=== PATIENT | female | born 1980 | race African-American/Black ===

== ENCOUNTER 2016-11-08 10:39 | Emergency (ER) | payer MEDICAID ==
[~2016-11-08] VITALS: Ht 167.6 cm; Wt 81.6 kg
[2016-11-08 12:01] LABS: Basophils # (auto) 0 uL; Basophils % (auto) 0.4 % (0.0-2.0); CONDITION Y; Eosinophils # (auto) 0 uL; Eosinophils % (auto) 0.6 % (0.0-7.0); Hematocrit 34.1 % (36.0-46.0); Hemoglobin 11.5 g/dL (12.2-16.2); Lymphocytes # (auto) 2.5 uL; Lymphocytes % (auto) 38.7 % (10.0-50.0); Mean Corpuscular Hgb Conc. 33.7 g/dL (32.0-36.0); Mean Corpuscular Volume 92.1 fL (80.0-100.0); Mean Platelet Volume 8.4 fL (7.4-10.4); Monocytes # (auto) 0.3 uL; Monocytes % (auto) 4.9 % (0.0-12.0); Neutrophils # (auto) 3.6 uL; Neutrophils % (auto) 55.4 % (37.0-80.0); Platelet Count (auto) 235 10^3/uL (140-450); Red Cell Distribution Width 13.4 % (11.6-16.0); White Blood Cell 6.5 10^3/uL (4.4-10.8)
[2016-11-08 12:02] LABS: Urine Bilirubin Negative (Negative); Urine Blood Negative /uL (Negative); Urine Color Yellow (Yellow); Urine Glucose Normal (Normal); Urine Ketone Negative (Negative); Urine Mucus FEW (None Seen); Urine Nitrite Negative (Negative); Urine RBC 2 /hpf (0 - 4); Urine Squamous Epithelial Cell FEW /hpf (<5); Urine Urobilinogen Normal (Negative); Urine pH 5.5 (5.0-8.0)
[2016-11-08 12:21] LABS: Albumin 3.4 g/dL (3.4-5.0); Calcium 8.5 mg/dL (8.5-10.1); Potassium 4.1 mmol/L (3.5-5.1)
[2016-11-08 12:24] LABS: Bilirubin, Total 0.4 mg/dL (0.2-1.0); Total Protein 7.7 g/dL (6.4-8.2)
[2016-11-08 12:44] VITALS: BP 121/80
== END 2016-11-08 13:08 | disposition home or self-care (01) ==
LOC: ER 10:46
DX: K59.8 Other specified functional intestinal disorders (principal); I10 Essential (primary) hypertension; Z98.51 Tubal ligation status; Z88.8 Allergy status to other drugs, medicaments and biological substances
CPT/HCPCS: 36415; 80053; 81001; 81025; 85025

== ENCOUNTER 2017-08-22 15:16 | Emergency (ER) | payer MEDICAID ==
[~2017-08-22] VITALS: Ht 170.2 cm; Wt 79.8 kg
[2017-08-22 15:49] LABS: Urine Bacteria NONE SEEN /hpf (None Seen); Urine Blood TRACE /uL (Negative); Urine Mucus FEW (None Seen); Urine WBC 15 /hpf (0 - 5)
[2017-08-22] MEDS ORDERED: HYDROcodone-ACET 7.5/325MG TAB PO ONE (19:30)
[2017-08-22] MEDS ORDERED: ONDANSETRON ODT 4 MG TAB PO ONE (19:30)
[2017-08-22 20:05] VITALS: BP 131/65
== END 2017-08-22 20:05 | disposition home or self-care (01) ==
LOC: ER 15:16
DX: D25.9 Leiomyoma of uterus, unspecified (principal); N70.11 Chronic salpingitis; I10 Essential (primary) hypertension; Z98.51 Tubal ligation status
CPT/HCPCS: 36415; 76830; 76856; 81001; 84702; 99285; Q0162

== ENCOUNTER 2017-11-26 17:02 | Observation (INO) | payer MEDICAID ==
[~2017-11-26] VITALS: Ht 165.1 cm; Wt 81.2 kg
[2017-11-26 17:15] VITALS: BP 135/92
[2017-11-26 17:45] LABS: Urine Bacteria NONE SEEN /hpf (None Seen); Urine Blood Negative /uL (Negative); Urine Mucus FEW (None Seen); Urine WBC 2 /hpf (0 - 5)
[2017-11-26 19:19] LABS: Basophils # (auto) 0 uL; Basophils % (auto) 0.4 % (0.0-2.0); Eosinophils # (auto) 0.1 uL; Eosinophils % (auto) 1.9 % (0.0-7.0); Hematocrit 33.5 % (36.0-46.0); Hemoglobin 11.2 g/dL (12.2-16.2); Lymphocytes # (auto) 2.2 uL; Lymphocytes % (auto) 42.2 % (10.0-50.0); Mean Corpuscular Hemoglobin 30.6 pg (28.0-32.0); Mean Corpuscular Hgb Conc. 33.5 g/dL (32.0-36.0); Mean Corpuscular Volume 91.4 fL (80.0-100.0); Monocytes # (auto) 0.4 uL; Neutrophils # (auto) 2.6 uL; Neutrophils % (auto) 48.5 % (37.0-80.0); Nucleated Red Blood Cells % 0.2 %; Platelet Count (auto) 202 10^3/uL (140-450); Red Blood Cells 3.67 10^6/uL (4.0-5.20); Red Cell Distribution Width 12.8 % (11.8-14.3); White Blood Cell 5.3 10^3/uL (4.4-10.8)
[2017-11-26 19:54] LABS: Albumin 3.6 g/dL (3.4-5.0); Bilirubin, Total 0.3 mg/dL (0.2-1.0); Calcium 8.6 mg/dL (8.5-10.1); Potassium 3.8 mmol/L (3.5-5.1); Total Protein 7.7 g/dL (6.4-8.2)
== END 2017-11-26 20:53 | disposition home or self-care (01) | DRG 532 ==
LOC: ER 17:13 → OVERFLOW 17:14 → ER 20:53
PROVIDERS: ADMIT Family Medicine; ATTEND Family Medicine
DX: D25.9 Leiomyoma of uterus, unspecified (principal); D64.89 Other specified anemias; I10 Essential (primary) hypertension; F12.11 Cannabis abuse, in remission; Z88.6 Allergy status to analgesic agent
CPT/HCPCS: 36415; 74176; 80053; 81001; 83735; 84702; 85025; 99285; G0378

== ENCOUNTER 2018-10-09 10:45 | Emergency (ER) | payer MEDICAID ==
[~2018-10-09] VITALS: Ht 167.6 cm; Wt 81.8 kg
[2018-10-09 11:14] LABS: Basophils # (auto) 0 uL; Basophils % (auto) 0.6 % (0.0-2.0); Eosinophils # (auto) 0.1 uL; Eosinophils % (auto) 0.9 % (0.0-7.0); Hemoglobin 12.1 g/dL (12.2-16.2); Lymphocytes # (auto) 1.6 uL; Lymphocytes % (auto) 27.8 % (10.0-50.0); Mean Corpuscular Hgb Conc. 32.7 g/dL (32.0-36.0); Mean Corpuscular Volume 91.8 fL (80.0-100.0); Monocytes # (auto) 0.3 uL; Neutrophils # (auto) 3.8 uL; Neutrophils % (auto) 65.7 % (37.0-80.0); Nucleated Red Blood Cells % 0.1 %; Platelet Count (auto) 215 10^3/uL (140-450); Red Blood Cells 4.03 10^6/uL (4.0-5.20); Red Cell Distribution Width 13.2 % (11.8-14.3); White Blood Cell 5.8 10^3/uL (4.4-10.8)
[2018-10-09 11:30] LABS: Albumin 3.4 g/dL (3.4-5.0); Calcium 8.9 mg/dL (8.5-10.1); Potassium 3.7 mmol/L (3.5-5.1)
[2018-10-09 11:32] LABS: Urine Bacteria NONE SEEN /hpf (None Seen); Urine Blood Negative /uL (Negative); Urine Mucus FEW (None Seen); Urine Specific Gravity 1.027 (1.001-1.035); Urine WBC 9 /hpf (0 - 5)
[2018-10-09 11:33] LABS: BUN/Creatinine Ratio 15.5; Bilirubin, Total 0.5 mg/dL (0.2-1.0); Total Protein 7.8 g/dL (6.4-8.2)
[2018-10-09] MEDS ORDERED: HYDROcodone-ACET 7.5/325MG TAB PO ONE (14:45)
[2018-10-09 15:40] VITALS: BP 128/78
== END 2018-10-09 15:46 | disposition home or self-care (01) ==
LOC: ER 10:45
DX: N83.201 Unspecified ovarian cyst, right side (principal); N39.0 Urinary tract infection, site not specified; I10 Essential (primary) hypertension; F12.90 Cannabis use, unspecified, uncomplicated; Z90.49 Acquired absence of other specified parts of digestive tract; Z98.51 Tubal ligation status
CPT/HCPCS: 36415; 74176; 80053; 81001; 81025; 82150; 83690; 85025

== ENCOUNTER 2018-12-21 12:25 | Inpatient (IN) | payer MEDICAID ==
[~2018-12-21] VITALS: Ht 165.1 cm; Wt 81.2 kg
[2018-12-21 13:05] LABS: Basophils # (auto) 0 uL; Basophils % (auto) 0.7 % (0.0-2.0); Eosinophils # (auto) 0.1 uL; Eosinophils % (auto) 1.3 % (0.0-7.0); Hematocrit 35.5 % (36.0-46.0); Hemoglobin 12.3 g/dL (12.2-16.2); Lymphocytes # (auto) 2.2 uL; Lymphocytes % (auto) 37.3 % (10.0-50.0); Mean Corpuscular Hemoglobin 30.7 pg (28.0-32.0); Mean Corpuscular Hgb Conc. 34.5 g/dL (32.0-36.0); Monocytes # (auto) 0.3 uL; Monocytes % (auto) 5.2 % (0.0-12.0); Neutrophils # (auto) 3.3 uL; Neutrophils % (auto) 55.5 % (37.0-80.0); Platelet Count (auto) 220 10^3/uL (140-450); Red Blood Cells 3.99 10^6/uL (4.0-5.20)
[2018-12-21 13:21] LABS: Albumin 3.8 g/dL (3.4-5.0); BUN/Creatinine Ratio 13.6; Calcium 9.2 mg/dL (8.5-10.1); Potassium 3.6 mmol/L (3.5-5.1)
[2018-12-21 13:23] LABS: Bilirubin, Total 0.5 mg/dL (0.2-1.0); Total Protein 8.1 g/dL (6.4-8.2)
[2018-12-21 13:51] LABS: Urine Bacteria NONE SEEN /hpf (None Seen); Urine Blood TRACE /uL (Negative); Urine Hyaline Cast FEW /lpf (0 - 2); Urine Mucus FEW (None Seen); Urine Specific Gravity 1.021 (1.001-1.035); Urine WBC 41 /hpf (0 - 5)
[2018-12-21 13:52] LABS: Magnesium 1.9 mg/dL (1.6-2.6)
[2018-12-21 14:12] LABS: INR < 0.93 (0.9-1.15); Partial Thromboplastin Time 24.5 sec (23.64-32.05)
[2018-12-21] MEDS ORDERED: IOHEXOL 350 MG/ML 100ML IJ ONE (15:28)
[2018-12-21] MEDS ORDERED: NITROGLYCERIN 0.4 MG SL TAB SL PRN (18:45)
[2018-12-21] MEDS ORDERED: MORPHINE SULF INJ 2 MG/ML SYRINGE 1ML IV PRN (18:45)
[2018-12-21] MEDS ORDERED: amLODIPine BESYLATE 5 MG TAB PO ONE (18:45)
[2018-12-21 19:36] LABS: Alcohol, Urine < 3.0 mg/dL (0-5); Amphetamine Screen, Urine NEGATIVE (NEGATIVE); Barbiturate Scree,Urine NEGATIVE (NEGATIVE); Benzodiazephine Screen, Urine NEGATIVE (NEGATIVE); Cocaine Screen, Urine NEGATIVE (NEGATIVE); Opiate Scree,Urine NEGATIVE (NEGATIVE); Phencyclidine Screen, Urine NEGATIVE (NEGATIVE)
[2018-12-21 19:46] LABS: Cannabinoid Screen, Urine POSITIVE (NEGATIVE)
[2018-12-21] MEDS ORDERED: LABETALOL HCL 5 MG/ML ML 20ML VIAL IV ONE (20:00)
--- NOTE | 2018-12-21 20:45 | NUR ---
Telemetry admit from [facility] admitted to Telemetry unit. Patient oriented to Slime Watters, primary RN, unit, room, bed, and unit policies regarding patient care and visiting hours. Patient now on continuous telemetry monitoring, tele box # 4 and telemetry reading on arrival to unit is SINUS RHYTHM. Patient weighed by bedscale and encouraged to call if they need something. All questions and concerns addressed, patient verbalized understanding.
[2018-12-21 21:07] VITALS: BP 139/71
[2018-12-21] MEDS ORDERED: METO-169 PO (21:19)
[2018-12-21] MEDS ORDERED: AMLO5TAB15 PO (21:19)
[2018-12-21 22:00] VITALS: BP 139/71
[2018-12-21] MEDS: ENALAPRIL MALEATE 2.5 MG TAB PO SCH (22:25)
[2018-12-22 05:29] VITALS: BP 105/62
[2018-12-22 07:12] LABS: Basophils # (auto) 0 uL; Basophils % (auto) 0.7 % (0.0-2.0); Eosinophils # (auto) 0.2 uL; Eosinophils % (auto) 3.8 % (0.0-7.0); Hemoglobin 11.4 g/dL (12.2-16.2); Lymphocytes # (auto) 1.9 uL; Lymphocytes % (auto) 36.7 % (10.0-50.0); Mean Corpuscular Hemoglobin 30.4 pg (28.0-32.0); Mean Corpuscular Hgb Conc. 33.6 g/dL (32.0-36.0); Mean Corpuscular Volume 90.4 fL (80.0-100.0); Monocytes # (auto) 0.4 uL; Monocytes % (auto) 7.5 % (0.0-12.0); Neutrophils # (auto) 2.7 uL; Neutrophils % (auto) 51.3 % (37.0-80.0); Platelet Count (auto) 190 10^3/uL (140-450); Red Blood Cells 3.76 10^6/uL (4.0-5.20); Red Cell Distribution Width 13.2 % (11.8-14.3); White Blood Cell 5.2 10^3/uL (4.4-10.8)
[2018-12-22 07:28] LABS: Albumin 3.3 g/dL (3.4-5.0); BUN/Creatinine Ratio 14.9; Calcium 8.3 mg/dL (8.5-10.1); Potassium 3.9 mmol/L (3.5-5.1)
[2018-12-22 07:32] LABS: Bilirubin, Total 0.4 mg/dL (0.2-1.0)
--- NOTE | 2018-12-22 08:10 | NUR ---
neurology consult pt seen by Dr. Lo, he ordered MRI and carotid ultrasound.
[2018-12-22] MEDS ORDERED: HYDROcodone-ACET 5/325MG TAB PO PRN (08:30)
[2018-12-22] MEDS ORDERED: LORazepam 2MG/ML-1ML VIAL IV PRN (08:30)
[2018-12-22 09:00] VITALS: BP 126/70
[2018-12-22] MEDS ORDERED: cefTRIAXone 1GM/50ML D5W 50 ML IV SCH (09:00)
[2018-12-22] MEDS: ENALAPRIL MALEATE 2.5 MG TAB PO SCH (09:52)
[2018-12-22] MEDS ORDERED: CLOPIDOGREL BISULFATE 75 MG TAB PO SCH (10:00)
[2018-12-22] MEDS ORDERED: FAMOTIDINE 20 MG TAB PO SCH (10:00)
[2018-12-22] MEDS ORDERED: amLODIPine BESYLATE 5 MG TAB PO SCH (10:00)
--- NOTE | 2018-12-22 12:05 | NUR ---
pt seen by Dr. Biggs
[2018-12-22 13:00] VITALS: BP 145/77
--- NOTE | 2018-12-22 13:30 | NUR ---
SPOKE WITH DR. FRAIRE PER DR. FRAIRE SHE SPOKE WITH DR. SAMAYOA AND PT IS NEGATIVE FOR STROKE, PER DR. FRAIRE PT CAN GO HOME, SHE ORDERED TO CALL IN PRESCRIPTION TO PT'S PHARMACY.
--- NOTE | 2018-12-22 14:50 | NUR ---
SPOKE WITH DR. FRAIRE PER DR. FRAIRE PT NEEDS ECHOCARDIOGRAM DONE AND PT CAN GO HOME, NO NEED TO WAIT FOR THE RESULT.
[2018-12-22 15:03] VITALS: BP 145/77
--- NOTE | 2018-12-22 16:05 | NUR ---
CALL IN PRESCRIPTION TO [facility]# [phone].
[2018-12-22 17:00] VITALS: BP 115/58
--- NOTE | 2018-12-22 17:01 | NUR ---
Received consult for patient requesting information regarding an advanced directive. Patient was presented the forms for an advanced directive and explained how to go about completing the form: identifying the designated person, get the forms notarized, keep the master copy, and to provide the his/her PCP and/or hospital on next encounter. Patient verbalized understanding.
--- NOTE | 2018-12-22 18:05 | NUR ---
Discharge instructions given as ordered. Encourage to follow up with DR. SAVAGE JEFFERY ON JANUARY 06 AT 8AM as instructed. All questions and concerns addressed. Patient verbalized understanding. Medication reconciliation form completed and copy given to patient. IV removed with catheter intact, pressure dressing applied. Telemetry unit returned to ICU. Patient taken to vehicle via wheelchair with all personal belongings, accompanied by staff and family member. No distress noted at time of departure.
== END 2018-12-22 18:05 | disposition home or self-care (01) | DRG 756 ==
LOC: ER 12:25 → TELE 12:26 → TELE-EAST 20:37
PROVIDERS: ADMIT Nurse Practitioner Acute Care; ATTEND Internal Medicine
DX: F43.0 Acute stress reaction (principal); Z91.19 Patient's noncompliance with other medical treatment and regimen; E66.9 Obesity, unspecified; N39.0 Urinary tract infection, site not specified; F41.9 Anxiety disorder, unspecified; I10 Essential (primary) hypertension; F12.10 Cannabis abuse, uncomplicated; F17.210 Nicotine dependence, cigarettes, uncomplicated; J45.909 Unspecified asthma, uncomplicated; Z79.899 Other long term (current) drug therapy; Z68.29 Body mass index [BMI] 29.0-29.9, adult; Z81.8 Family history of other mental and behavioral disorders; Z82.0 Family history of epilepsy and other diseases of the nervous system; Z82.49 Family history of ischemic heart disease and other diseases of the circulatory system; Z83.3 Family history of diabetes mellitus; Z90.49 Acquired absence of other specified parts of digestive tract
CPT/HCPCS: 36415; 70450; 70551; 71046; 71275; 80053; 80061; 80307; 81001; 81025; 82570; 83735; 84443; 84484; 85025; 85379; 85610; 85730; 93005; 93306; 93886; G0378; J0696

== ENCOUNTER 2019-02-05 00:11 | Emergency (ER) | payer MEDICAID ==
[~2019-02-05] VITALS: Ht 167.6 cm; Wt 81.6 kg
[2019-02-05 01:12] LABS: Urine Bacteria NONE SEEN /hpf (None Seen); Urine Blood Negative /uL (Negative); Urine Mucus FEW (None Seen); Urine Specific Gravity 1.017 (1.001-1.035); Urine WBC 1 /hpf (0 - 5)
[2019-02-05 01:27] LABS: Basophils # (auto) 0 uL; Basophils % (auto) 0.5 % (0.0-2.0); Eosinophils # (auto) 0 uL; Eosinophils % (auto) 0.5 % (0.0-7.0); Hematocrit 33.6 % (36.0-46.0); Hemoglobin 11.5 g/dL (12.2-16.2); Lymphocytes # (auto) 1.7 uL; Lymphocytes % (auto) 22.8 % (10.0-50.0); Mean Corpuscular Hemoglobin 30.5 pg (28.0-32.0); Mean Corpuscular Hgb Conc. 34.1 g/dL (32.0-36.0); Mean Corpuscular Volume 89.4 fL (80.0-100.0); Monocytes # (auto) 0.4 uL; Monocytes % (auto) 5.8 % (0.0-12.0); Neutrophils # (auto) 5.2 uL; Neutrophils % (auto) 70.4 % (37.0-80.0); Platelet Count (auto) 228 10^3/uL (140-450); Red Blood Cells 3.76 10^6/uL (4.0-5.20); Red Cell Distribution Width 13.2 % (11.8-14.3); White Blood Cell 7.4 10^3/uL (4.4-10.8)
[2019-02-05 01:43] LABS: INR 0.97 (0.9-1.15); Partial Thromboplastin Time 25.6 sec (23.64-32.05)
[2019-02-05 01:45] LABS: Albumin 3.5 g/dL (3.4-5.0); Calcium 8.6 mg/dL (8.5-10.1); Magnesium 2.2 mg/dL (1.6-2.6); Potassium 3.6 mmol/L (3.5-5.1)
[2019-02-05 01:47] LABS: BUN/Creatinine Ratio 13.1
[2019-02-05 01:49] LABS: Bilirubin, Total 0.4 mg/dL (0.2-1.0); Total Protein 8.1 g/dL (6.4-8.2)
[2019-02-05] MEDS ORDERED: ONDANSETRON HCL 4 MG/2 ML VIAL IV ONE (02:15)
[2019-02-05 02:24] VITALS: BP 108/61
== END 2019-02-05 03:09 | disposition left against medical advice (07) ==
LOC: ER 00:16
DX: R10.9 Unspecified abdominal pain (principal); M54.9 Dorsalgia, unspecified; I10 Essential (primary) hypertension; Z90.49 Acquired absence of other specified parts of digestive tract; Z88.8 Allergy status to other drugs, medicaments and biological substances
CPT/HCPCS: 36415; 80053; 81001; 81025; 82150; 83690; 83735; 84702; 85025; 85610; 85730; 96374; 99283; J2405

== ENCOUNTER 2023-07-29 01:35 | Inpatient (IN) | payer MEDICAID ==
[~2023-07-29] VITALS: Ht 167.6 cm; Wt 82.8 kg
[2023-07-29 02:04] LABS: Basophils # (auto) 0 10 ^3/uL (0-0.2); Basophils % (auto) 0.7 % (0.0-2.0); Eosinophils # (auto) 0.5 10 ^3/uL (0-0.8); Eosinophils % (auto) 8.6 % (0.0-7.0); Hematocrit 35.5 % (36.0-46.0); Hemoglobin 11.7 g/dL (12.2-16.2); Lymphocytes # (auto) 2.6 10 ^3/uL (0.4-5.4); Mean Corpuscular Hemoglobin 29.7 pg (28.0-32.0); Mean Corpuscular Volume 90.1 fL (80.0-100.0); Monocytes # (auto) 0.4 10 ^3/uL (0-1.3); Monocytes % (auto) 6.5 % (0.0-12.0); Neutrophils # (auto) 2.4 10 ^3/uL (1.6-8.6); Neutrophils % (auto) 40.2 % (37.0-80.0); Red Blood Cells 3.94 10^6/uL (4.0-5.20); Red Cell Distribution Width 13.7 % (11.8-14.3); White Blood Cell 5.9 10^3/uL (4.4-10.8)
[2023-07-29 02:10] VITALS: PULSE 86; RESP 13; O2SAT 98
[2023-07-29 02:13] LABS: Chloride 104 mmol/L (98-107); Potassium 3.6 mmol/L (3.5-5.1); Sodium 137 mmol/L (136-145)
[2023-07-29 02:14] LABS: Anion Gap 7 (5-15); Calcium 9.9 mg/dL (8.7-10.4); Carbon Dioxide 26 mmol/L (20-30)
[2023-07-29 02:19] LABS: BUN/Creatinine Ratio 12.9 (10.0-20.0); Blood Urea Nitrogen 11 mg/dL (9-23); Glucose 138 mg/dL (74-106)
[2023-07-29] MEDS: hydrALAZINE HCL 20 MG/ML VL IV ONE (02:29)
[2023-07-29] MEDS: ONDANSETRON HCL 4 MG/2 ML VIAL IV ONE (02:29)
[2023-07-29] MEDS ORDERED: TEMAZEPAM 15 MG CAP PO PRN (03:15)
[2023-07-29] MEDS ORDERED: ONDANSETRON HCL 4 MG/2 ML VIAL IV PRN (03:15)
[2023-07-29] MEDS ORDERED: cloNIDine HCL 0.1 MG TAB PO PRN (03:15)
[2023-07-29 03:20] LABS: Urine WBC None Seen /hpf (0 - 5)
[2023-07-29] MEDS: PROCHLORPERAZINE EDISYLATE 5 MG/ML 2ML VIAL IV ONE (03:32)
[2023-07-29 03:33] LABS: Urine Bacteria FEW /hpf (None Seen); Urine Blood Negative /uL (Negative); Urine Clarity Clear (Clear); Urine Protein, UAD Negative (Negative); Urine Urobilinogen Normal (Negative); Urine pH 6.5 (5.0-9.0)
[2023-07-29 03:49] LABS: Urine Color Straw (Yellow)
[2023-07-29 05:31] VITALS: BP 142/77; PULSE 75; PULSE 92; RESP 16; TEMP 98.5; O2SAT 97; O2SAT 98
[2023-07-29] MEDS ORDERED: AMLO1TAB23 PO ×3 (05:46→11:57)
[2023-07-29] MEDS: ACETAMINOPHEN 325 MG TAB PO PRN (06:23)
[2023-07-29 08:00] VITALS: PULSE 86; RESP 16; O2SAT 94
[2023-07-29 09:00] VITALS: BP 105/57; PULSE 86; RESP 16; TEMP 97.8
[2023-07-29] MEDS: amLODIPine BESYLATE 5 MG TAB PO SCH (10:00)
[2023-07-29] MEDS ORDERED: CLON0.1T PO (11:57)
[2023-07-29 13:00] VITALS: BP 122/67; PULSE 93; RESP 17; TEMP 98.4
[2023-07-29 13:39] VITALS: BP 122/67; PULSE 93; RESP 17; TEMP 98.4; O2SAT 98
== END 2023-07-29 14:15 | disposition home or self-care (01) | DRG 199 ==
LOC: ER 01:35 → WEST WING 03:15 → OVERFLOW 03:15 → WEST WING 05:30
PROVIDERS: ADMIT Internal Medicine; ATTEND Internal Medicine
DX: I16.0 Hypertensive urgency (principal); D25.9 Leiomyoma of uterus, unspecified; F17.210 Nicotine dependence, cigarettes, uncomplicated; Z82.49 Family history of ischemic heart disease and other diseases of the circulatory system; Z83.3 Family history of diabetes mellitus; Z90.49 Acquired absence of other specified parts of digestive tract; Z79.899 Other long term (current) drug therapy
CPT/HCPCS: 36415; 70450; 80048; 81001; 82962; 85025; 96374; 96375; G0378; J2405